=== PATIENT | male | born 1945 | race Caucasian/White ===

== ENCOUNTER 2018-01-29 07:05 | Day surgery (SDC) | payer OTHER ==
[~2018-01-29 07:05] MED LIST: TIZANIDINE HCL2 MG PO
== END 2018-01-29 10:40 | disposition home or self-care (01) ==
LOC: AMB-ENDOS 07:05
DX: D12.5 Benign neoplasm of sigmoid colon (principal); D12.3 Benign neoplasm of transverse colon

== ENCOUNTER 2018-03-26 11:19 | Inpatient (IN) | payer OTHER ==
[~2018-03-26] VITALS: Ht 172.7 cm; Wt 71.7 kg
[2018-03-26] MEDS ORDERED: LITIO PO (12:16)
[2018-03-26] MEDS ORDERED: PROVENTIL HFA6.7 GM IH (12:17)
[2018-03-26] MEDS ORDERED: SINGULAIR10 MG PO (12:17)
[2018-03-26] MEDS ORDERED: LEVO-T25 MCG PO (12:17)
[2018-04-07] MEDS ORDERED: OXYC1TAB9 PO (15:09)
== END 2018-04-07 15:45 | disposition home or self-care (01) | DRG 331 ==
LOC: O/R 04-02 06:00 → SURH 04-02 06:00 → O/R 04-02 11:45 → SURH 04-07 15:45
PROVIDERS: Surgery
PROC: 0DTF4ZZ Resection of Right Large Intestine, Percutaneous Endoscopic Approach (ICD-10-PCS; principal; 2018-04-02 11:45)
PROC: 3E0F7GC Introduction of Other Therapeutic Substance into Respiratory Tract, Via Natural or Artificial Opening (ICD-10-PCS; 2018-04-05)
DX: D12.3 Benign neoplasm of transverse colon (principal); J45.998 Other asthma

== ENCOUNTER 2018-07-06 12:41 | Outpatient (CLI) | payer OTHER ==
[~2018-07-06 12:41] MED LIST changes: +LEVO-T25 MCG PO; +LITIO PO; +OXYC1TAB9 PO; +PROVENTIL HFA6.7 GM IH; +SINGULAIR10 MG PO
== END 2018-07-06 12:51 | disposition home or self-care (01) ==
LOC: LAB 12:41
DX: N20.0 Calculus of kidney (principal); N30.00 Acute cystitis without hematuria